=== PATIENT | female | born 1945 | race Caucasian/White ===

== ENCOUNTER 2016-04-13 13:16 | Inpatient (IN) | payer MEDICARE, MEDICAID ==
[~2016-04-13] VITALS: Ht 162.6 cm; Wt 59.2 kg
[2016-04-13] MEDS ORDERED: SODIUM CHLORIDE 0.9% 1,000 ML ONE (14:51)
[2016-04-13] MEDS ORDERED: AZITHROMYCIN 500 MG VIAL IV ONE (16:21)
[2016-04-13] MEDS ORDERED: DEXTROSE 5% AVIVA 250 ML IV ONE (16:21)
[2016-04-13] MEDS ORDERED: SODIUM CHLORIDE 0.9% 100 ML IV ONE (16:21)
[2016-04-13] MEDS ORDERED: CEFTRIAXONE 1 GM VIAL ONE (16:21)
[2016-04-13] MEDS ORDERED: DILAUDID 1 MG/ML AMP ONE (18:20)
[2016-04-13 19:47] VITALS: BP_SYST 167; RESP 22; TEMP 98.8; Ht 162.6 cm; Wt 59.2 kg
[2016-04-13 19:51] VITALS: BP_SYST 156
[2016-04-13] MEDS ORDERED: GLUCAGON 1 MG VIAL IM PRN (19:55)
[2016-04-13] MEDS ORDERED: DILAUDID 1 MG/ML AMP IV PRN (19:55)
[2016-04-13] MEDS ORDERED: SODIUM CHLORIDE 0.9% 1,000 ML IV SCH (19:55)
[2016-04-13] MEDS ORDERED: DEXTROSE 50% SYRINGE 50 ML IV PRN (19:55)
[2016-04-13] MEDS ORDERED: MAGNESIUM SULF 1 GM/100 ML 100 ML IV ONE (20:45)
[2016-04-13 21:09] VITALS: RESP 16
[2016-04-13] MEDS: NICOTINE 21 MG/24 HR TRANSDERM SCH (21:58)
[2016-04-13] MEDS: DUONEB INH SCH (22:33)
[2016-04-13] MEDS: ALPRAZOLAM 0.25 MG TAB PO SCH (22:56)
[2016-04-13] MEDS: FAMOTIDINE 20 MG TAB PO SCH (23:01)
[2016-04-13] MEDS: METOPROLOL TART 25 MG TAB PO SCH (23:01)
[2016-04-13] MEDS: CAPECITABINE 500 MG TAB PO SCH (23:01)
[2016-04-13 23:41] VITALS: BP_SYST 149; RESP 18; TEMP 100
[2016-04-14] MEDS: METHYLPRED SOD SUCC 40 MG VIAL IV SCH ×3 (00:57→16:32)
[2016-04-14 03:37] VITALS: BP_SYST 147; RESP 18; TEMP 99.2
[2016-04-14] MEDS: PANTOPRAZOLE 40 MG TAB PO SCH (05:28)
[2016-04-14] MEDS ORDERED: SODIUM CHLORIDE 0.9% 1,000 ML IV SCH (06:35)
[2016-04-14] MEDS: DUONEB INH SCH ×5 (06:45→22:37)
[2016-04-14 07:57] VITALS: BP_SYST 117; RESP 18; TEMP 97.3
[2016-04-14] MEDS: Furosemide 20 MG/2 ML VIAL IV SCH ×2 (08:30→16:32)
[2016-04-14] MEDS: CEFTRIAXONE 1 GM in SODIUM CHLORIDE 0.9% 50 ML IV SCH (08:31)
[2016-04-14] MEDS: KCL CR 20 MEQ TAB PO SCH ×2 (08:31)
[2016-04-14] MEDS: FAMOTIDINE 20 MG TAB PO SCH ×2 (08:31→20:37)
[2016-04-14] MEDS: ASPIRIN EC 81 MG TAB PO SCH (08:32)
[2016-04-14] MEDS: ALPRAZOLAM 0.25 MG TAB PO SCH ×3 (08:32→20:37)
[2016-04-14] MEDS: METOPROLOL TART 25 MG TAB PO SCH ×2 (08:32→20:37)
[2016-04-14] MEDS: CAPECITABINE 500 MG TAB PO SCH ×2 (08:32→20:37)
[2016-04-14] MEDS: NICOTINE 21 MG/24 HR TRANSDERM SCH ×2 (08:32→09:00)
[2016-04-14] MEDS ORDERED: Furosemide 20 MG TAB PO SCH (09:00)
[2016-04-14] MEDS: AZITHROMYCIN 500 MG in SODIUM CHLORIDE 0.9% 250 ML IV SCH (09:00)
[2016-04-14] MEDS ORDERED: MISSING DOSE XX ONE (10:05)
[2016-04-14 11:27] VITALS: BP_SYST 133; RESP 18; TEMP 97.5
[2016-04-14] MEDS: NYSTATIN 500,000 UNITS/5 ML SUSP SWISH.SWAL SCH ×3 (13:41→20:37)
[2016-04-14 15:22] VITALS: BP_SYST 135; RESP 18; TEMP 97.5
[2016-04-14 19:36] VITALS: BP_SYST 139; RESP 16; TEMP 97.5
[2016-04-14 23:33] VITALS: BP_SYST 147; RESP 16; TEMP 97.4
[2016-04-15] MEDS: METHYLPRED SOD SUCC 40 MG VIAL IV SCH (00:41)
[2016-04-15 04:06] VITALS: BP_SYST 152; RESP 14; TEMP 97.4
[2016-04-15] MEDS: PANTOPRAZOLE 40 MG TAB PO SCH (05:31)
[2016-04-15] MEDS: DUONEB INH SCH ×5 (06:57→22:53)
[2016-04-15 07:39] VITALS: BP_SYST 170; RESP 16; TEMP 97.6
[2016-04-15] MEDS: NICOTINE 21 MG/24 HR TRANSDERM SCH (09:00)
[2016-04-15] MEDS: KCL CR 20 MEQ TAB PO SCH ×2 (09:00→09:04)
[2016-04-15] MEDS: AZITHROMYCIN 500 MG in SODIUM CHLORIDE 0.9% 250 ML IV SCH (09:00)
[2016-04-15] MEDS: CEFTRIAXONE 1 GM in SODIUM CHLORIDE 0.9% 50 ML IV SCH (09:04)
[2016-04-15] MEDS: FAMOTIDINE 20 MG TAB PO SCH ×2 (09:04→21:01)
[2016-04-15] MEDS: ASPIRIN EC 81 MG TAB PO SCH (09:04)
[2016-04-15] MEDS: METOPROLOL TART 25 MG TAB PO SCH ×2 (09:04→21:01)
[2016-04-15] MEDS: Furosemide 20 MG/2 ML VIAL IV SCH ×2 (09:04→16:17)
[2016-04-15] MEDS: NYSTATIN 500,000 UNITS/5 ML SUSP SWISH.SWAL SCH ×4 (09:04→21:02)
[2016-04-15] MEDS: CAPECITABINE 500 MG TAB PO SCH ×2 (09:05→21:02)
[2016-04-15] MEDS: ALPRAZOLAM 0.25 MG TAB PO SCH ×3 (09:05→21:05)
[2016-04-15 11:40] VITALS: BP_SYST 156; RESP 16; TEMP 97.3
[2016-04-15 15:21] VITALS: BP_SYST 161; RESP 16; TEMP 97.3
[2016-04-15 19:19] VITALS: BP_SYST 149; RESP 16; TEMP 97.3
[2016-04-15 23:04] VITALS: BP_SYST 157; RESP 16; TEMP 97.6
[2016-04-15] MEDS ORDERED: LORAZEPAM 0.5 MG TAB PO PRN (23:30)
[2016-04-15] MEDS ORDERED: LORAZEPAM 0.5 MG TAB PO ONE (23:30)
[2016-04-16] MEDS: PANTOPRAZOLE 40 MG TAB PO SCH (05:16)
[2016-04-16 06:03] VITALS: BP_SYST 153; RESP 18; TEMP 97.5
[2016-04-16] MEDS: DUONEB INH SCH ×5 (06:48→22:39)
[2016-04-16 07:00] VITALS: BP_SYST 147; RESP 16; TEMP 98
[2016-04-16] MEDS: Furosemide 20 MG/2 ML VIAL IV SCH ×2 (08:08→16:00)
[2016-04-16] MEDS: CEFTRIAXONE 1 GM in SODIUM CHLORIDE 0.9% 50 ML IV SCH (08:14)
[2016-04-16] MEDS: KCL CR 20 MEQ TAB PO SCH (08:14)
[2016-04-16] MEDS: ASPIRIN EC 81 MG TAB PO SCH (08:14)
[2016-04-16] MEDS: FAMOTIDINE 20 MG TAB PO SCH ×2 (08:15→19:22)
[2016-04-16] MEDS: ALPRAZOLAM 0.25 MG TAB PO SCH ×4 (08:15→19:23)
[2016-04-16] MEDS: CAPECITABINE 500 MG TAB PO SCH ×2 (08:15→19:23)
[2016-04-16] MEDS: METOPROLOL TART 25 MG TAB PO SCH ×2 (08:15→19:23)
[2016-04-16] MEDS: NYSTATIN 500,000 UNITS/5 ML SUSP SWISH.SWAL SCH ×4 (08:15→19:23)
[2016-04-16] MEDS: NICOTINE 21 MG/24 HR TRANSDERM SCH (08:17)
[2016-04-16] MEDS: AZITHROMYCIN 500 MG in SODIUM CHLORIDE 0.9% 250 ML IV SCH (09:06)
[2016-04-16 11:15] VITALS: BP_SYST 145; RESP 18; TEMP 97.3
[2016-04-16 14:00] VITALS: BP_SYST 169; RESP 16; TEMP 97.6
[2016-04-16 19:53] VITALS: BP_SYST 176; RESP 18; TEMP 97.5
[2016-04-16 23:35] VITALS: BP_SYST 150; RESP 16; TEMP 97.3
[2016-04-17] VITALS (15 sets, daily range): BP systolic 100–183; RESP 12–18; TEMP 97.3–98.6
[2016-04-17] MEDS: SODIUM CHLORIDE 0.9% FLUSH BAG 500 ML IV SCH (06:51)
[2016-04-17] MEDS: PANTOPRAZOLE 40 MG TAB PO SCH (06:52)
[2016-04-17] MEDS: DUONEB INH SCH ×5 (06:57→22:40)
[2016-04-17] MEDS: ALPRAZOLAM 0.25 MG TAB PO SCH (09:00)
[2016-04-17] MEDS ORDERED: SODIUM CHLORIDE 0.9% 1,000 ML IV SCH (09:35)
[2016-04-17] MEDS ORDERED: MISSING DOSE XX ONE ×3 (09:45→10:05)
[2016-04-17] MEDS: FAMOTIDINE 20 MG TAB PO SCH ×2 (10:24→20:04)
[2016-04-17] MEDS: Furosemide 20 MG/2 ML VIAL IV SCH ×2 (10:24→16:30)
[2016-04-17] MEDS: METOPROLOL TART 25 MG TAB PO SCH ×2 (10:24→20:05)
[2016-04-17] MEDS: CAPECITABINE 500 MG TAB PO SCH ×2 (10:24→20:05)
[2016-04-17] MEDS: ASPIRIN EC 81 MG TAB PO SCH (10:24)
[2016-04-17] MEDS: CEFTRIAXONE 1 GM in SODIUM CHLORIDE 0.9% 50 ML IV SCH (10:25)
[2016-04-17] MEDS: NICOTINE 21 MG/24 HR TRANSDERM SCH (10:25)
[2016-04-17] MEDS: NYSTATIN 500,000 UNITS/5 ML SUSP SWISH.SWAL SCH ×4 (10:25→20:05)
[2016-04-17] MEDS: KCL CR 20 MEQ TAB PO SCH (10:26)
[2016-04-17] MEDS ORDERED: ALPRAZOLAM 0.25 MG TAB PO PRN (11:20)
[2016-04-18] MEDS: PANTOPRAZOLE 40 MG TAB PO SCH (06:09)
[2016-04-18] MEDS: SODIUM CHLORIDE 0.9% FLUSH BAG 500 ML IV SCH (06:09)
[2016-04-18] MEDS: DUONEB INH SCH ×5 (07:00→23:20)
[2016-04-18 08:12] VITALS: BP_SYST 161; RESP 16; TEMP 98.5
[2016-04-18] MEDS: FAMOTIDINE 20 MG TAB PO SCH ×2 (09:00→20:53)
[2016-04-18] MEDS: CAPECITABINE 500 MG TAB PO SCH ×3 (09:00→20:53)
[2016-04-18] MEDS: NYSTATIN 500,000 UNITS/5 ML SUSP SWISH.SWAL SCH ×5 (09:00→20:53)
[2016-04-18] MEDS ORDERED: MISSING DOSE XX ONE (09:20)
[2016-04-18] MEDS: Furosemide 20 MG/2 ML VIAL IV SCH ×2 (09:22→18:04)
[2016-04-18] MEDS: CEFTRIAXONE 1 GM in SODIUM CHLORIDE 0.9% 50 ML IV SCH (09:24)
[2016-04-18] MEDS: NICOTINE 21 MG/24 HR TRANSDERM SCH (09:39)
[2016-04-18] MEDS: KCL CR 20 MEQ TAB PO SCH (09:42)
[2016-04-18] MEDS: ASPIRIN EC 81 MG TAB PO SCH (09:42)
[2016-04-18] MEDS: METOPROLOL TART 25 MG TAB PO SCH ×2 (09:42→20:53)
[2016-04-18 12:28] VITALS: BP_SYST 157; RESP 16; TEMP 98.2
[2016-04-18 15:27] VITALS: BP_SYST 159; RESP 18; TEMP 97.4
[2016-04-18 19:40] VITALS: BP_SYST 166; RESP 18; TEMP 99
[2016-04-18 23:16] VITALS: BP_SYST 149; RESP 18; TEMP 97.6
[2016-04-19] MEDS: SODIUM CHLORIDE 0.9% FLUSH BAG 500 ML IV SCH (03:08)
[2016-04-19 04:48] VITALS: BP_SYST 175; RESP 18; TEMP 97.9
[2016-04-19] MEDS: PANTOPRAZOLE 40 MG TAB PO SCH (05:37)
[2016-04-19] MEDS: DUONEB INH SCH ×5 (06:48→23:59)
[2016-04-19 07:21] VITALS: BP_SYST 174; RESP 18; TEMP 97.9
[2016-04-19] MEDS: NICOTINE 21 MG/24 HR TRANSDERM SCH (09:00)
[2016-04-19] MEDS: METOPROLOL TART 25 MG TAB PO SCH ×2 (09:36→21:19)
[2016-04-19] MEDS: ASPIRIN EC 81 MG TAB PO SCH (09:36)
[2016-04-19] MEDS: KCL CR 20 MEQ TAB PO SCH (09:36)
[2016-04-19] MEDS: Furosemide 20 MG/2 ML VIAL IV SCH ×2 (09:36→17:29)
[2016-04-19] MEDS: FAMOTIDINE 20 MG TAB PO SCH ×2 (09:36→21:19)
[2016-04-19] MEDS: CAPECITABINE 500 MG TAB PO SCH ×2 (09:37→21:20)
[2016-04-19] MEDS: NYSTATIN 500,000 UNITS/5 ML SUSP SWISH.SWAL SCH ×4 (09:37→21:19)
[2016-04-19] MEDS: CEFTRIAXONE 1 GM in SODIUM CHLORIDE 0.9% 50 ML IV SCH (09:47)
[2016-04-19 12:09] VITALS: BP_SYST 159; RESP 18; TEMP 98.5
[2016-04-19 15:21] VITALS: BP_SYST 147; RESP 18; TEMP 97.8
[2016-04-19 19:46] VITALS: BP_SYST 170; RESP 18; TEMP 98.9
[2016-04-19] MEDS ORDERED: MISSING DOSE XX ONE (20:15)
[2016-04-19 23:07] VITALS: BP_SYST 153; RESP 18; TEMP 97.8
[2016-04-20] VITALS (7 sets, daily range): BP systolic 104–187; RESP 16–18; TEMP 97.8–98.8
[2016-04-20] MEDS: PANTOPRAZOLE 40 MG TAB PO SCH (06:07)
[2016-04-20] MEDS: SODIUM CHLORIDE 0.9% FLUSH BAG 500 ML IV SCH (06:08)
[2016-04-20] MEDS: DUONEB INH SCH ×5 (06:33→23:07)
[2016-04-20] MEDS: NICOTINE 21 MG/24 HR TRANSDERM SCH (09:00)
[2016-04-20] MEDS ORDERED: MISSING DOSE XX ONE (09:30)
[2016-04-20] MEDS: Furosemide 20 MG/2 ML VIAL IV SCH ×2 (09:33→17:25)
[2016-04-20] MEDS: NYSTATIN 500,000 UNITS/5 ML SUSP SWISH.SWAL SCH ×4 (09:34→20:46)
[2016-04-20] MEDS: FAMOTIDINE 20 MG TAB PO SCH ×2 (09:34→20:46)
[2016-04-20] MEDS: CEFTRIAXONE 1 GM in SODIUM CHLORIDE 0.9% 50 ML IV SCH (09:34)
[2016-04-20] MEDS: ASPIRIN EC 81 MG TAB PO SCH (09:34)
[2016-04-20] MEDS: KCL CR 20 MEQ TAB PO SCH (09:34)
[2016-04-20] MEDS: METOPROLOL TART 25 MG TAB PO SCH ×2 (09:35→20:46)
[2016-04-20] MEDS: CAPECITABINE 500 MG TAB PO SCH ×2 (11:50→20:46)
[2016-04-21 03:37] VITALS: BP_SYST 171; RESP 16; TEMP 98.1
[2016-04-21] MEDS: SODIUM CHLORIDE 0.9% FLUSH BAG 500 ML IV SCH (06:02)
[2016-04-21] MEDS: PANTOPRAZOLE 40 MG TAB PO SCH (06:02)
[2016-04-21] MEDS: DUONEB INH SCH ×5 (07:04→22:57)
[2016-04-21 07:24] VITALS: BP_SYST 166; RESP 16; TEMP 97.7
[2016-04-21] MEDS: NICOTINE 21 MG/24 HR TRANSDERM SCH (09:00)
[2016-04-21] MEDS: CAPECITABINE 500 MG TAB PO SCH ×2 (09:32→20:44)
[2016-04-21] MEDS: NYSTATIN 500,000 UNITS/5 ML SUSP SWISH.SWAL SCH (09:32)
[2016-04-21] MEDS: KCL CR 20 MEQ TAB PO SCH (09:33)
[2016-04-21] MEDS: ASPIRIN EC 81 MG TAB PO SCH (09:33)
[2016-04-21] MEDS: METOPROLOL TART 25 MG TAB PO SCH ×2 (09:33→20:43)
[2016-04-21] MEDS: Furosemide 20 MG/2 ML VIAL IV SCH ×2 (09:34→16:42)
[2016-04-21] MEDS: FAMOTIDINE 20 MG TAB PO SCH ×2 (09:34→20:43)
[2016-04-21 11:47] VITALS: BP_SYST 151; RESP 18; TEMP 98.6
[2016-04-21 16:13] VITALS: BP_SYST 185; RESP 16; TEMP 98.4
[2016-04-21 19:27] VITALS: BP_SYST 175; RESP 18; TEMP 97.6
[2016-04-21 23:53] VITALS: BP_SYST 153; RESP 16; TEMP 98
[2016-04-22 04:12] VITALS: BP_SYST 157; RESP 16; TEMP 97.7
[2016-04-22] MEDS: SODIUM CHLORIDE 0.9% FLUSH BAG 500 ML IV SCH (05:45)
[2016-04-22] MEDS: PANTOPRAZOLE 40 MG TAB PO SCH (06:30)
[2016-04-22] MEDS: DUONEB INH SCH ×3 (07:06→14:48)
[2016-04-22 08:09] VITALS: BP_SYST 139; RESP 18; TEMP 97.9
[2016-04-22] MEDS: Furosemide 20 MG/2 ML VIAL IV SCH ×2 (08:27→16:38)
[2016-04-22] MEDS: KCL CR 20 MEQ TAB PO SCH (08:27)
[2016-04-22] MEDS: ASPIRIN EC 81 MG TAB PO SCH (08:28)
[2016-04-22] MEDS: METOPROLOL TART 25 MG TAB PO SCH (08:28)
[2016-04-22] MEDS: CAPECITABINE 500 MG TAB PO SCH (08:29)
[2016-04-22] MEDS: FAMOTIDINE 20 MG TAB PO SCH (08:30)
[2016-04-22] MEDS: NICOTINE 21 MG/24 HR TRANSDERM SCH (08:30)
[2016-04-22 11:07] VITALS: BP_SYST 143; RESP 18; TEMP 97.9
[2016-04-22 15:28] VITALS: BP_SYST 143; RESP 18; TEMP 97.9
[2016-04-22 16:39] VITALS: BP_SYST 147; RESP 16; TEMP 97.6
== END 2016-04-22 18:19 | disposition home health service (06) | DRG 190 ==
LOC: ER 13:16 → ENPENDDIS 18:10 → EMR 18:10 → 4THE 19:30
PROVIDERS: ADMIT Internal Medicine; ATTEND Internal Medicine
DX: J44.0 Chronic obstructive pulmonary disease with (acute) lower respiratory infection (principal); J18.9 Pneumonia, unspecified organism; G62.9 Polyneuropathy, unspecified; C78.7 Secondary malignant neoplasm of liver and intrahepatic bile duct; C18.9 Malignant neoplasm of colon, unspecified; J90 Pleural effusion, not elsewhere classified; E11.9 Type 2 diabetes mellitus without complications; E86.0 Dehydration; I10 Essential (primary) hypertension; J98.11 Atelectasis; K21.9 Gastro-esophageal reflux disease without esophagitis; E78.00 Pure hypercholesterolemia, unspecified; Z86.73 Personal history of transient ischemic attack (TIA), and cerebral infarction without residual deficits; Z85.3 Personal history of malignant neoplasm of breast; R41.0 Disorientation, unspecified; M19.90 Unspecified osteoarthritis, unspecified site; Z79.82 Long term (current) use of aspirin; Z72.0 Tobacco use; Z82.49 Family history of ischemic heart disease and other diseases of the circulatory system
CPT/HCPCS: 36415; 36430; 36600; 71010; 71020; 80048; 80053; 81001; 82140; 82803; 82947; 83605; 83880; 85025; 86738; 86850; 86900; 86901; 86923; 87040; 87071; 87077; 87088; 87205; 87278; 87299; 87804; 94640; 94799; 96361; 96365; 96367; 96375